=== PATIENT | female | born 1960 | race Caucasian/White ===

== ENCOUNTER 2019-03-10 08:55 | Day surgery (SDC) | payer BC, SELFPAY ==
--- NOTE | 2019-03-04 14:42 | PCM.HP.BLA ---
History and Physical Date of Admission: 03/04/19 HPI: The patient is a 58 year old female presenting for pre-operative visit. She is scheduled for Hysteroscopy D&C w/ polypectomy, for PMB, endometrial polyp on 03/10/2019. Procedure discussed along with risks, benefits and complications. Other alternatives discussed for management. Consent form signed? Yes. ? ? PAST MEDICAL HISTORY PAST MEDICAL HISTORY Diagnosis Date ? Disorder of bone ? ? bone growths ? Endometriosis ? ? Hypertriglyceridemia ? ? ? PAST SURGICAL HISTORY PAST SURGICAL HISTORY Procedure Laterality Date ? ANKLE SCOPE,PLANTAR FASCIOTOMY Right 04/2014 ? DILATION AND CURRETAGE ? 02/27/1984 ? LAPAROSCOPY, SURGICAL; ENTEROLYSIS ? ? ? 2 laparoscopies for endometriosis inher 20s/30s ? REMOVAL OF OVARY(S) Left 05/17/1991 ? ? ? CURRENT MEDICATIONS Current Outpatient Medications Medication Sig Dispense Refill ? docosahexanoic acid/epa (FISH OIL ORAL) Take by mouth. ? ? ? IBUPROFEN ORAL Take by mouth. ? ? ? No current facility-administered medications for this visit. ? ? ALLERGIES: Codeine; Septra [Sulfamethoxazole-Trimethoprim]; Vibramycin [Doxycycline Calcium] ? PERSONAL HISTORY: SOCIAL HISTORY Social History ? Tobacco Use ? Smoking status: Never Smoker ? Smokeless tobacco: Never Used Substance Use Topics ? Alcohol use: Not Currently ? Drug use: Never ? FAMILY HISTORY: FAMILY HISTORY FAMILY HISTORY Problem Relation Age of Onset ? Diabetes Mother ? ? Cancer Father ? ? tumor on bone growth ? other (Other) Sister ? ? has bone growth disorder ? ? REVIEW OF SYMPTOMS: GENERAL: denies fevers or chills ENDOCRINOLOGY: has not been on steroids Cardiology : denies palpitations or chest pain Respiratory: denies SOB or cough Hematology: denies history of prolonged bleeding or easy bruising or VTE Allergy: Denies history of personal or family history of allergy to anesthesia ? PHYSICAL EXAMINATION: ? VITALS: There were no vitals taken for this visit. ? GENERAL: The patient is well nourished, well hydrated in no acute distress. , The patient is oriented to time, place, and person. NECK: Supple. No lynphadenopathy, normal thyroid, no thyromegaly. LUNGS: Clear to auscultation bilaterally. no wheezes, rhonchi or rales HEART: Regular rate and rhythm, Normal heart sounds and No murmurs or gallops ? EMB- c/w polyp ? IMPRESSION: PMB, endometrial polyp on EMB ? PLAN: The risks/benefits/alternatives and personal involved for the planned hysteroscopy D&C w/ possible polypectomy were reviewed with the patient. Her questions were answered to her satisfaction and she desires to proceed. Consent was signed. I reviewed with her postop instructions and expectations. ? ? I have reviewed and updated past medical and surgical history, medications and allergies this history and physical was completed in my office on 03/04/2019.
[2019-03-10 09:23] LABS: Hematocrit 46.6 % (37-47); Hemoglobin 15.1 g/dL (12.0-15.0); Mean Corp Hgb Conc 32.4 g/dL (32-36); Mean Corpuscular Hgb 28.5 pg (27.0-32.0); Mean Corpuscular Volume 87.9 fL (81-99); Mean Platelet Vol. 9.5 fl (6.2-12.0); Platelet Count 178 K/mm3 (150-450); RBC Distribution Width SD 38.6 fl (35.1-43.9); White Blood Count 4.8 K/mm3 (4.4-11.0)
[2019-03-10 09:32] VITALS: BP 133/79; PULSE 75; RESP 15; TEMP 36.5; O2SAT 95; BMI 36.6
[2019-03-10 09:34] LABS: Anion Gap 2 (5-15); BUN 14 mg/dL (7-18); BUN/Creat Ratio 15.2 RATIO (10-20); Calcium,Total 8.9 mg/dL (8.5-10.1); Chloride 108 mmol/L (98-107); Creatinine, Serum 0.92 mg/dL (0.55-1.02); EST Glomerular Filtration Rate 67 mL/min (>60); Est Glom Filt Rate - Afr Amer 81 mL/min (>60); Glucose 142 mg/dL (74-106); Potassium 3.9 mmol/L (3.5-5.1); Sodium Level 142 mmol/L (136-145)
[2019-03-10] MEDS: Lactated Ringers 1,000 ML 40 ML IV (09:37)
[2019-03-10] MEDS: Ketorolac 30 MG/ML Syringe IV (09:42)
[2019-03-10] MEDS: Acetaminophen 500 MG Tablet 1000 MG PO (09:42)
[2019-03-10] MEDS: Lubricating Jelly 60 GM Tube 30 GM TOPICAL (10:40)
--- NOTE | 2019-03-10 10:40 | PCM.DC.D&C ---
Discharge Diet: No Restrictions Discharge Activity: Return to Normal Activity, May Shower, May Take a Tub Bath - in 2 weeks. Allergies/Adverse Reactions: Allergies codeine Allergy (Verified 03/10/19 09:31) Unknown doxycycline [From Vibramycin] Allergy (Verified 03/10/19 09:31) Unknown Sulfa (Sulfonamide Antibiotics) Allergy (Verified 03/10/19 09:31) Unknown sulfamethoxazole [From Septra] Allergy (Verified 03/10/19 09:31) Unknown trimethoprim [From Octra] Allergy (Verified 03/10/19 09:31) Unknown Medications to take at Discharge Ibuprofen 600 mg PO PRN PRN 03/09/19 Tennyson-3 Fatty Acids/Fish Oil [Fish Oil 1,000 mg Capsule] 1 ea PO DAILY 03/09/19 Primary Care Physician: Alyssa Meredith NP-C [Primary Care Provider] - Test Results: Test results from this visit will be discussed in further detail at your follow-up appointment, if applicable. Please Follow Up With: Olena Estevez MD - [phone] When: 2-4 weeks or as needed. THis can be a virtual visit
--- NOTE | 2019-03-10 10:55 | EMB_PTH ---
PATIENT: MICHELLE BAUTISTA LOC: [facility] [place] U#:[id number] AGE/SX: 58/F ROOM: RE03/10/[address]: Dr. Olena Estevez MD : 1960 BED: DIS: 03/10/2019 SPEC #: [id number] RECD: 03/10/19 13:14 STATUS: PEDRO CORTES #: [id number] DENNIS: 03/10/19 10:[address]: Olena Estevez DEPT: SURGICAL PATHOLOGY RECD BY: Steven June ENTERED: 03/10/19 13:48 SP TYPE: ENDOM BX/C OTHR DR: Alyssa Meredith, TILE FITTER-C Tissues: Endometrium, NOS Procedures: Surgery Specimen Level IV HEADER OPERATION: Hysteroscopy, D & C, polyp resection, Symphion PRE-OP DIAGNOSIS: Postmenopausal bleeding; endometrial polyp TISSUE SUBMITTED: Endometrial curettings MICROSCOPIC DIAGNOSIS Endometrium, curettings: Polypoid fragments of simple hyperplasia without atypia. Fragments of myometrium with changes suggestive of adenomyosis. AM:javy 03/11/19 COMMENT Case has been reviewed in consultation with Dr. Holt who concurs with the above diagnosis. IDC:ONEL MICROSCOPIC DESCRIPTION Slides are reviewed. GROSS DESCRIPTION Received in fixative is one container labeled with the patient's name and designated endometrial curettings. The specimen consists of multiple irregular fragments of murray-pink soft tissue that in aggregate measure 5 x 3 x 0.3 cm. The entire specimen is submitted in two cassettes. / SJ:javy 03/10/19 TC:5 CPT: 03503
--- NOTE | 2019-03-10 11:06 | OP.PCM_ITS ---
Report of Operation Date of Procedure: 03/10/19 Pre-Operative Diagnosis: Postmenopausal bleeding, endometrial polyp Post-Operative Diagnosis: Same Surgery/Procedure Performed:: Hysteroscopy dilation and curettage with polyp resection Description of Surgical Findings:: 2 fundal endometrial polyps, otherwise normal-appearing endometrium, both tubal ostia identified. product manufacturing professional: Madhav Vallejo MS3 Type of Anesthesia:: MAC/Supplemental/Local Anesthesiologist: Dara Pérez Special Medications: none Specimen's removed: endometrial curettings Drains: none Estimated Blood Loss (mL): 10 Fluids Replaced: 400 cc Description of Procedure: The patient was taken to the OR where she was prepped and draped in dorsal lithotomy position. The weighted speculum was placed in the vagina and the anterior lip of the cervix was grasped with a single-tooth tenaculum. A paracervical block was administered with 1% lidocaine with 1-100,000 epinephrine solution. The cervix was dilated serially with Hegar dilators. The Symphion hysteroscope was placed into the uterine cavity and the above findings were noted. Bilateral tubal ostia were identified. The Symphion was readied and used to shave out the polyps and then do a visual curettage of the endometrial cavity. The instruments were removed from the vagina. The specimen was handed off and sent to pathology. All sponge and needle counts were correct. Vaginal sweep was performed by me. The patient was awakened and taken to the recovery room in stable condition. Hysteroscopic fluid deficit- calculated 600 cc Findings: Endometrial cavity: 2 fundal polyps, otherwise normal-appearing thin endometrium Cervix: Normal Vagina: Normal Grafts/Implants Used: none - Complications none - Admit VTE Documentation VTE Present on Admission: No VTE Mechan Device Prophylaxis: SCD's VTE Pharm Prophylaxis ordered?: No Reason prophylaxis not ordered:: Procedure Not Indicated
[2019-03-10 11:11] VITALS: BP 133/79; BP 140/82; PULSE 96; RESP 16; TEMP 36.7; O2SAT 92
[2019-03-10 11:15] VITALS: BP 133/79; BP 133/84; PULSE 96; RESP 16; O2SAT 92
[2019-03-10 11:20] VITALS: BP 117/79; BP 133/79; PULSE 90; RESP 16; O2SAT 92
[2019-03-10 11:26] VITALS: BP 121/80; BP 133/79; PULSE 82; RESP 16; TEMP 36.4; O2SAT 92
[2019-03-10 13:38] VITALS: BP 133/79
== END 2019-03-10 13:39 | disposition home or self-care (01) ==
LOC: SDC 08:59 → AC 09:00
PROVIDERS: PCP Nurse Practitioner Primary Care; Referring Provider Obstetrics & Gynecology; Visit Provider Obstetrics & Gynecology
PROC: 0UB98ZZ Excision of Uterus, Via Natural or Artificial Opening Endoscopic (ICD-10-PCS; CPT 58558; principal; 2019-03-10 10:40)
DX: N85.01 Benign endometrial hyperplasia (principal); E78.1 Pure hyperglyceridemia; N95.0 Postmenopausal bleeding
CPT/HCPCS: 58558; 36415; 80048; 85027; 88305; J7120; J2405

== ENCOUNTER → 2019-10-28 07:46 | Outpatient (CLI) | payer BC, SELFPAY | PROVIDERS: Referring Provider Family Medicine; Visit Provider Family Medicine | DX: Z11.59 Encounter for screening for other viral diseases (principal) | CPT/HCPCS: 87635; U0003 ==

== ENCOUNTER → 2019-11-10 15:00 | Outpatient (CLI) | payer BC, SELFPAY | PROVIDERS: Referring Provider Family Medicine; Visit Provider Family Medicine | DX: Z03.818 Encounter for observation for suspected exposure to other biological agents ruled out (principal) | CPT/HCPCS: 87635; U0003 ==

== ENCOUNTER → 2019-11-24 12:27 | Outpatient (CLI) | payer BC, SELFPAY | PROVIDERS: Referring Provider Family Medicine; Visit Provider Family Medicine | DX: Z03.818 Encounter for observation for suspected exposure to other biological agents ruled out (principal) | CPT/HCPCS: 87635; U0003 ==

== ENCOUNTER → 2019-12-08 10:46 | Outpatient (CLI) | payer BC, SELFPAY | PROVIDERS: Referring Provider Family Medicine; Visit Provider Family Medicine | DX: Z03.818 Encounter for observation for suspected exposure to other biological agents ruled out (principal) | CPT/HCPCS: 87635; U0003 ==

== ENCOUNTER → 2019-12-22 13:14 | Outpatient (CLI) | payer BC, SELFPAY | PROVIDERS: Referring Provider Family Medicine; Visit Provider Family Medicine | DX: Z03.818 Encounter for observation for suspected exposure to other biological agents ruled out (principal) | CPT/HCPCS: 87635; U0003 ==

== ENCOUNTER → 2022-11-11 | Outpatient (CLI) | payer OTHER, BC, SELFPAY ==
--- NOTE | 2022-11-11 09:29 | BI_ITS ---
MAMMOGRAPHY - BILATERAL SCREENING REASON FOR EXAM: Female, 62 years old. Routine annual screening examination. PERTINENT HISTORY: Non-contributory. TECHNIQUE: Digital bilateral breast shasha (3D mammographic acquisition) in the CC and MLO projections. 2-D mediolateral oblique (MLO) and craniocaudad (CC) views of both breasts were obtained. CAD: Full Field Digital Mammography with Computer Added Detection was performed. COMPARISON: Comparison is made with prior outside examination dated March 12, 2020. FINDINGS: Breast Composition: The breasts are almost entirely fatty. There are no dominant masses or suspicious calcifications. Stable small benign-appearing bilateral axillary lymph nodes. No other significant abnormalities are identified. There has been no significant change since the prior study. BI/SCRN MAMM (CAD)W/SHASHA BILAT IMPRESSION: Stable bilateral screening mammogram. Yearly follow-up mammogram recommended. (A) ASSESSMENT CATEGORY: BIRADS Category 2: Benign. A letter regarding these results will be sent to the patient by the facility within 30 days. Approximately 10% of breast cancers are not detected by mammography. A normal mammogram should not delay biopsy of a clinically suspicious abnormality. [id number] Electronically Signed: Reddy Modi MD at 10:31 EDT ,
== END | disposition home or self-care (01) ==
LOC: OPBI 09:28
PROVIDERS: PCP Nurse Practitioner Primary Care; Referring Provider Nurse Practitioner Primary Care; Visit Provider Nurse Practitioner Primary Care
DX: Z12.31 Encounter for screening mammogram for malignant neoplasm of breast (principal)
CPT/HCPCS: 77063; 77067